=== PATIENT | female | born 1995 | race Two or more races ===

== ENCOUNTER → 2019-06-30 | Day surgery (SDC) | payer OTHER | END | disposition home or self-care (01) | LOC: ADM 06-27 08:00 → CIR.AMB 07:00 | PROVIDERS: Plastic Surgery | PROC: 0HBV0ZZ Excision of Bilateral Breast, Open Approach (ICD-10-PCS; principal; 2019-06-30 07:00) | DX: N62 Hypertrophy of breast (principal) ==